=== PATIENT | male | born 1975 | race Caucasian/White ===

== ENCOUNTER → 2017-09-22 | Outpatient (CLI) | payer SELFPAY ==
[~2017-09-22] MED LIST: NS 100 ML IV 100 ML IV ONE
--- NOTE | 2017-09-22 16:31 | CT ---
HISTORY: Right lower quadrant pain, change in bowel habits Study: CT abdomen and pelvis with IV and contrast Comparison: No priors Technique: Multiple axial images of the abdomen and pelvis were obtained from the lung bases to the pubic symphy sis during the administration of IV contrast. Oral contrast agents were also given. Dose reduction t echniques utilized automatic exposure control. Findings: The visualized portions of the lung bases are unremarkable. The spleen is mildly enlarged measuring a bout 14.9 cm in maximum dimension. No splenic mass is seen. The liver, pancreas, kidneys, and adrena l glands are unremarkable in their CT appearance. The gallbladder is unremarkable in its CT appearanc e. No significant mesenteric lymphadenopathy or stranding can be observed. No free fluid or free ai r is seen within the abdomen. No bowel dilatation is present. The appendix is normal. There is very mild wall thickening involving the upper rectal region. This may be on an inflammatory or neoplastic basis. Endoscopic evaluation is suggested. No evidence of very colonic fat reticulation or fluid ines ection is seen. The wall thickening is best appreciated on series 4, image 70. Segment extends for ab out 3.5 cm.. The urinary bladder is grossly unremarkable. The bony structures are grossly intact. IMPRESSION: Mild splenomegaly. Concentric bowel wall thickening of the upper rectum region. This may be on an inflammatory or neopla stic basis. Endoscopic evaluation is encouraged. There is no evidence of bowel obstruction. Normal appendix. Reported By:
== END ==
LOC: RAD 10:21
PROVIDERS: ATTEND Nurse Practitioner Family
DX: R10.31 Right lower quadrant pain (principal); R19.4 Change in bowel habit
CPT/HCPCS: 74177; A4222

== ENCOUNTER 2017-09-25 07:17 | Day surgery (SDC) | payer OTHER ==
[2017-09-25] MEDS ORDERED: D5 LR 1000 ML 1,000 ML IV ONE (07:33)
[2017-09-25] MEDS ORDERED: XYLOCAINE 2 % (PLAIN) ONE (08:09)
[2017-09-25] MEDS ORDERED: DIPRIVAN VIAL 20 ML ONE (08:09)
[2017-09-25] MEDS ORDERED: DIPRIVAN VIAL 10 ML ONE (08:27)
[2017-09-25 08:55] VITALS: BP 120/68
== END 2017-09-25 09:00 | disposition home or self-care (01) ==
LOC: SURG1 07:17
PROVIDERS: ATTEND Internal Medicine Gastroenterology
PROC: 0DJD8ZZ Inspection of Lower Intestinal Tract, Via Natural or Artificial Opening Endoscopic (ICD-10-PCS; principal; 2017-09-25 18:45)
PROC: 0DBE8ZX Excision of Large Intestine, Via Natural or Artificial Opening Endoscopic, Diagnostic (ICD-10-PCS; principal; 2017-09-25 18:45)
DX: R10.31 Right lower quadrant pain (principal); K92.1 Melena; R19.4 Change in bowel habit; R93.5 Abnormal findings on diagnostic imaging of other abdominal regions, including retroperitoneum; K64.0 First degree hemorrhoids
CPT/HCPCS: A4217; J2001; J3490; J7120